=== PATIENT | male | born 1955 | race African-American/Black ===

== ENCOUNTER 2021-11-28 04:02 | Inpatient (IN) ==
[2021-11-28] MEDS ORDERED: *HR* HYDROmorphone (PF) 1 MG/ML SYRINGE IVP ONE (04:24)
[2021-11-28] MEDS ORDERED: Ondansetron 4 MG/2 ML VIAL IVP ONE (04:24)
[2021-11-28] MEDS ORDERED: Iopamidol - 370 500 ML MLS IVP ONE (04:25)
[2021-11-28 04:40] LABS: Basophils % 0.5 %; Eosinophils # 0.2 K/mcL (0.0-0.6); Eosinophils % 1.7 %; Hematocrit 41.1 % (37.5-50.1); Hemoglobin 13.8 g/dL (12.9-16.9); Immature Granulocytes % 0.2 % (0-4); Lymphocytes # 1.8 K/mcL (0.6-4.6); Lymphocytes % 20.5 %; Mean Corpuscular HGB Conc 33.6 g/dL (31.6-35.5); Mean Corpuscular Hemoglobin 28.6 pg (28.0-33.3); Mean Corpuscular Volume 85.1 fL (83.0-100.0); Mean Platelet Volume 11.2 fL (9.4-12.4); Monocytes # 0.9 K/mcL (0.0-1.3); Monocytes % 10.6 %; Neutrophils # 5.7 K/mcL (1.6-8.9); Platelet Count 197 K/mcL (140-400); Red Blood Count 4.83 M/mcL (4.19-5.50); Red Cell Distribution Width 14.4 % (11.5-14.5); Segmented Neutrophils % 66.5 %; White Blood Count 8.6 K/mcL (4.3-11.1)
[2021-11-28 05:00] LABS: Albumin 4.8 g/dL (3.5-5.7); Albumin/Globulin Ratio 1.5 (1.1-2.2); Bilirubin,Total 1.3 mg/dL (0.3-1.0); Calcium 10.4 mg/dL (8.6-10.3); Globulin 3.1 g/dL (2.4-3.5); Potassium 4.1 mEq/L (3.5-5.1); Total Protein 7.9 g/dL (6.4-8.9)
[2021-11-28] MEDS ORDERED: Acetaminophen 325 MG TABLET PO PRN (07:11)
[2021-11-28] MEDS ORDERED: *HR* HYDROmorphone (PF) 1 MG/ML SYRINGE IVP PRN (07:12)
[2021-11-28] MEDS ORDERED: Naloxone 0.4 MG/ML INJ IVP PRN (07:13)
[2021-11-28] MEDS ORDERED: Ondansetron 4 MG/2 ML VIAL IVP PRN (07:13)
[2021-11-28] MEDS ORDERED: Dextrose Gel 15 GM/37.5 ML TUBE PO PRN ×2 (07:44)
[2021-11-28] MEDS ORDERED: *HR* Dextrose 50 % in Water (Syg) 50 ML SYRINGE IVP PRN (07:44)
[2021-11-28] MEDS ORDERED: D5% in Water 1,000 ML IVC PRN (07:44)
[2021-11-28] MEDS ORDERED: Ringers Solution, Lactated 1,000 ML IVC SCH (07:45)
[2021-11-28] MEDS ORDERED: 0.9 % Sodium Chloride 1,000 ML IVC SCH (08:00)
[2021-11-28] MEDS ORDERED: *HR* LORazepam 2 MG/ML VIAL IVP PRN (08:11)
[2021-11-28] MEDS: 0.9 % Sodium Chloride 1,000 ML IVC SCH ×2 (09:59→15:52)
[2021-11-28] MEDS: Insulin LISPRO 300 UNITS/3 ML VIAL SUBQ SCH ×2 (12:54→19:11)
[2021-11-29] MEDS: Insulin LISPRO 300 UNITS/3 ML VIAL SUBQ SCH ×4 (00:17→16:58)
[2021-11-29 03:33] LABS: BUN/Creatinine Ratio 21 (6-26); Blood Urea Nitrogen 30 mg/dL (8-23); Calcium 9.4 mg/dL (8.6-10.3); Carbon Dioxide 28 mEq/L (23-29); Chloride 102 mEq/L (98-107); Glucose 113 mg/dL (70-105); Osmolality,Calculated 295 (280-300); Potassium 3.8 mEq/L (3.5-5.1); Sodium 139 mEq/L (136-145); eGFR For African Americans > 60 (> 60); eGFR For Non-African Americans 50 (> 60)
[2021-11-29 06:05] LABS: VBG Ionized Calcium 1.17 mmol/L (1.15-1.35)
[2021-11-29] MEDS ORDERED: 0.9 % Sodium Chloride 1,000 ML IVC SCH (10:15)
[2021-11-29] MEDS: *HR* Heparin 5,000 UNIT/ML VIAL SQ SCH (17:02)
[2021-11-29] MEDS: *HR* Metoprolol 5 MG/5 ML VIAL IVP SCH (17:03)
[2021-11-29] MEDS: 0.9 % Sodium Chloride 1,000 ML IVC SCH (18:32)
[2021-11-30] MEDS: Insulin LISPRO 300 UNITS/3 ML VIAL SUBQ SCH ×2 (00:40→06:04)
[2021-11-30] MEDS: *HR* Metoprolol 5 MG/5 ML VIAL IVP SCH ×2 (00:57→08:12)
[2021-11-30 02:08] LABS: BUN/Creatinine Ratio 16 (6-26); Blood Urea Nitrogen 21 mg/dL (8-23); Calcium 8.9 mg/dL (8.6-10.3); Carbon Dioxide 31 mEq/L (23-29); Chloride 102 mEq/L (98-107); Glucose 96 mg/dL (70-105); Osmolality,Calculated 289 (280-300); Potassium 3.8 mEq/L (3.5-5.1); Sodium 138 mEq/L (136-145); eGFR For African Americans > 60 (> 60); eGFR For Non-African Americans 56 (> 60)
[2021-11-30 04:35] VITALS: O2SAT 96
[2021-11-30] MEDS: 0.9 % Sodium Chloride 1,000 ML IVC SCH (04:45)
[2021-11-30] MEDS: *HR* Heparin 5,000 UNIT/ML VIAL SQ SCH (06:08)
[2021-11-30 07:40] VITALS: BP 146/89; PULSE 89; TEMP 98
[2021-11-30] MEDS ORDERED: carvediloL 25 MG TABLET PO SCH (17:00)
[2021-12-01] MEDS ORDERED: Colchicine 0.6 MG TABLET PO SCH (09:00)
[2021-12-01] MEDS ORDERED: hydroCHLOROthiazide 25 MG TABLET PO SCH (09:00)
[2021-12-01] MEDS ORDERED: lisinopriL 20 MG TABLET PO SCH (09:00)
[2021-12-01] MEDS ORDERED: allopurinoL 100 MG TABLET PO SCH (09:00)
== END 2021-11-30 10:16 | disposition home or self-care (01) | DRG 389 ==
LOC: EMEROOARM 04:02 → 3ANU 04:02 → SUATTDRO 07:50 → 3ANU 09:15
PROVIDERS: ADMIT Internal Medicine; ATTEND General Practice